=== PATIENT | female | born 1985 | race Hispanic/Latino ===

== ENCOUNTER 2021-02-18 11:40 | Outpatient (CLI) | payer OTHER | END 2021-02-18 11:41 | disposition home or self-care (01) | LOC: BICRAD 11:40 | PROVIDERS: ATTEND Family Medicine | DX: M79.672 Pain in left foot (principal); R10.9 Unspecified abdominal pain | CPT/HCPCS: 74018 ==

== ENCOUNTER 2023-12-25 16:28 | Outpatient (CLI) | payer OTHER | END 2023-12-25 16:29 | disposition home or self-care (01) | LOC: RAD 16:28 | PROVIDERS: ATTEND Family Medicine | DX: R76.12 Nonspecific reaction to cell mediated immunity measurement of gamma interferon antigen response without active tuberculosis (principal) | CPT/HCPCS: 71046 ==